=== PATIENT | female | born 1955 | race Caucasian/White ===

== ENCOUNTER 2021-11-16 14:18 | Emergency (ER) | payer MEDICARE ==
[~2021-11-16] VITALS: Ht 162.6 cm; Wt 64.5 kg
[2021-11-16] MEDS ORDERED: lactulose 20gm/30ml cup PO ONE (21:45)
[2021-11-16] MEDS ORDERED: magnesium hydroxide 30ml (MOM) UD suspension PO ONE (21:45)
[2021-11-16] MEDS ORDERED: normal saline 1000ML IV soln IVB ONE (21:45)
[2021-11-16 22:16] LABS: BASOPHILS % (AUTO) 0.2 % (0-1); EOSINOPHILS # (AUTO) 0.2 X10'3 (0-0.9); EOSINOPHILS % (AUTO) 4.3 % (0-6); HEMATOCRIT 38.7 % (35.0-45.0); LYMPHOCYTES # (AUTO) 1.6 X10'3 (1.1-4.8); LYMPHOCYTES % (AUTO) 31.7 % (21-51); MEAN CORPUSCULAR HEMOGLOBIN 31.1 PG (27.0-31.0); MEAN CORPUSCULAR HGB CONC 33.7 g/dL (33.0-36.5); MEAN CORPUSCULAR VOLUME 92.4 FL (78-98); MEAN PLATELET VOLUME 9.3 FL (7.4-10.4); MONOCYTES # (AUTO) 0.4 X10'3 (0-0.9); MONOCYTES % (AUTO) 8.1 % (2-12); NEUTROPHILS # (AUTO) 2.8 X10'3 (1.8-7.7); NEUTROPHILS % (AUTO) 55.7 % (42-75); PLATELET COUNT 288 X10'3 (140-440); RED BLOOD COUNT 4.18 X10'6 (4.20-5.60); RED CELL DISTRIBUTION WIDTH 13.9 % (11.5-14.5)
[2021-11-16 22:18] LABS: ALANINE AMINOTRANSFERASE 19 U/L (12-78); ALBUMIN 3.8 G/DL (3.4-5.0); ALKALINE PHOSPHATASE 37 IU/L (46-116); ANION GAP 5 (8-16); ASPARTATE AMINO TRANSFERASE 16 U/L (10-37); BILIRUBIN,TOTAL 0.4 MG/DL (0.1-1.0); BLOOD UREA NITROGEN 16 MG/DL (7-18); BUN/CREATININE RATIO 21.6 (6.6-38.0); CALCIUM 9.1 MG/DL (8.5-10.1); CHLORIDE 105 MMOL/L (99-107); CREATININE 0.74 MG/DL (0.40-0.90); GLUCOSE 105 MG/DL (70-104); SODIUM 140 MMOL/L (135-145); TOTAL CARBON DIOXIDE 29.8 MMOL/L (24-32); TOTAL PROTEIN 7.5 G/DL (6.4-8.2); eGFR 79 ML/MIN
[2021-11-16] MEDS ORDERED: bisacodyl 10mg suppository rectal RC STA ×2 (23:32)
[2021-11-17 00:20] VITALS: BP 155/98
== END 2021-11-17 00:23 | disposition home or self-care (01) ==
LOC: ER 14:18
DX: K59.00 Constipation, unspecified (principal); R10.84 Generalized abdominal pain; R19.7 Diarrhea, unspecified; Z72.89 Other problems related to lifestyle
CPT/HCPCS: 36415; 80053; 85025; 99284; J7030